=== PATIENT | male | born 1955 | race Caucasian/White ===

== ENCOUNTER 2018-02-14 05:21 | Inpatient (IN) ==
[2018-02-14] MEDS ORDERED: Chlorhexidine Gluconate 2% 1 Pack (2 Cloths) TOPICAL ONE (05:56)
[2018-02-14] MEDS ORDERED: Metoprolol Tartrate 25 MG Tablet PO ONE (05:56)
[2018-02-14] MEDS ORDERED: Sodium Chlor 0.9% Inj 500 ML IV.SIG SCH (06:00)
[2018-02-14] MEDS ORDERED: Heparin/NS PF Inj 500 ML ONE (06:42)
[2018-02-14] MEDS ORDERED: Thrombin Topical 20,000 UNIT Spray Kit TOPICAL ONE (06:42)
[2018-02-14] MEDS ORDERED: Gelatin Size 100 Topical Foam ONE (06:42)
[2018-02-14] MEDS ORDERED: ceFAZolin 1 GM Premix Inj 1 GM/50 ML PIGGYBACK IV.SIG ONE (06:42)
[2018-02-14] MEDS ORDERED: Heparin 10,000 UNITS/10 ML Vial (for IV use) ONE (06:42)
[2018-02-14] MEDS ORDERED: Protamine Sulfate Inj 50 MG/5 ML Vial ONE (06:42)
--- NOTE | 2018-02-14 07:20 | P.HPUP ---
The Pre-Admit History and Physical Examination regarding the above named patient was reviewed (including, but not limited to, vital signs, heart, lungs, co-morbid conditions), and upon re-examination it is noted that: the patient's condition has not significantly changed since the last examination.
[2018-02-14] MEDS ORDERED: Bisacodyl 10 MG Supp RECTAL PRN (09:38)
[2018-02-14] MEDS ORDERED: fentaNYL Citrate Inj 100 MCG/2 ML Ampul ONE (10:24)
[2018-02-14] MEDS ORDERED: Morphine Inj 4 MG/ML Vial ONE (10:24)
[2018-02-14] MEDS ORDERED: hydrALAZINE HCl Inj 20 MG/ML Vial ONE (10:25)
[2018-02-14] MEDS ORDERED: *morphine SULFATE 10 MG/ML PERIprocedure ONLY ONE ×2 (10:31→10:52)
--- NOTE | 2018-02-14 10:36 | P.OP ---
Preoperative Diagnosis: Asymptomatic severe left carotid artery stenosis Postoperative Diagnosis: Asymptomatic severe left carotid artery stenosis Date of procedure: 02/14/18 Procedure: Left carotid artery endarterectomy with pericardial patch angioplasty Anesthesia: GETA Surgeon: Alvaro Villegas MD Estimated blood loss (mL): 50 Operation and Findings: Findings Severe left carotid artery stenosis that was treated by performing a left carotid artery endarterectomy. I used an [place] shunt our total clamp time was less than 1 minute. Description of the procedure The patient was taken to the operating room, laid supine on the OR table. After general trach anesthesia the patient was prepped and draped in the standard sterile fashion. Timeout was called with all members in the OR in agreement. An incision was made anterior to the left sternocleidomastoid. Dissection was taken down through the subcutaneous tissues electrocautery. The carotid sheath was entered. The facial vein identified divided and ligated. The common carotid artery external carotid artery superior thyroid artery and internal carotid artery were dissected and encircled with Silastic loop. The hypoglossal nerve and vagus nerve were identified and protected throughout the whole procedure. The patient was given 5000 units of heparin. Proximal distal control was obtained and an arteriotomy was created in the common carotid artery and extended into the internal carotid artery. An [place] shunt was placed to establish flow from the common carotid artery to the internal carotid artery. Endarterectomy was performed. All fine debris was removed. The distal flap was tacked using multiple 7-0 Prolene suture. The artery was repaired using a pericardial patch that was cut to an appropriate length and secured using 6-0 Prolene suture in the running fashion. The shunt was removed all vessels were flushed and the suture line was completed. I establish flow from the common carotid artery to the external carotid artery then into the internal carotid artery. Hemostasis was achieved. #19 MARY ANN drain was placed into the wound and brought through the skin using a different stab wound. The drain was secured using a nylon suture. The wound was closed in multiple layers using 0 Vicryl suture followed by Monocryl suture. Sterile dressing was applied. The patient was awakened from anesthesia with no neurological deficits and his tongue was midline. He was transferred to the postop care unit in stable condition.
[2018-02-14] MEDS ORDERED: Labetalol HCl Inj 100 MG/20 ML Vial IV.PUSH PRN (10:37)
[2018-02-14] MEDS ORDERED: hydrALAZINE HCl Inj 20 MG/ML Vial IV.PUSH PRN (10:38)
--- NOTE | 2018-02-14 10:43 | P.CONCC ---
History of Present Illness Service: Critical care medicine Consult date: 02/14/18 Requesting Physician: Alvaro Villegas Reason for Consult: ICU management Primary Care Provider: Irais Skelton MD Chief Complaint: Status post left carotid endarterectomy History of Present Illness: This is a 62-year-old male. Date of admission 02/14/2018. Date of consultation 02/15/2008. Past medical includes obstructive sleep apnea, hypertension, malignant Syndrome, psoriasis, colonic polyps. Patient is only on baby aspirin and rosuvastatin 10 mg daily at home. Patient presents to [place] for elective left carotid enterectomy diagnosed as an outpatient. Patient denies any history of TIAs. Today, patient with a uncomplicated left carotid enterectomy by Dr. Villegas. 1900 crystalloid. 100 cc EBL. 450 cc urine output. Patient is currently in nasal cannula postoperatively without complication. Patient has arterial line with systolic blood pressures currently around 150. Receiving as needed labetalol and hydralazine. Denies chest pain. Complaining only of a sore throat. Review of Systems Constitutional: Denies anorexia, Denies body ache(s) Eyes: Denies blind spots, Denies blurry vision Ears, Nose, Mouth, and Throat: Reports sore throat, Denies abnormal hearing, Denies bad breath Cardiovascular: Denies chest pain, Denies shortness of breath Respiratory: Denies cough, Denies shortness of breath, Denies shortness of breath with activity Gastrointestinal: Denies abdominal pain Genitourinary: Denies urinary hesitancy, Denies urinary incontinence Musculoskeletal: Denies abnormal walking, Denies decreased muscle mass Skin/Breast: Denies bleeding lesions, Denies dry skin Neurologic: Denies abnormal hearing, Denies abnormal movements Psychiatric: Denies abnormal sleep pattern, Denies anxiety, Denies confusion, Denies depression Endocrine: Denies cold intolerance, Denies excessive sweating Hematologic/Lymphatic: Denies easy bleeding PMFSH - History History Provided By: Patient - Medical History Medical History: Medical History (Last Updated 02/14/18 @ 10:47 by Pedro Pablo Pedraza MD) Facet arthropathy of spine History of colonic polyps Sleep apnea GERD (gastroesophageal reflux disease) High cholesterol Psoriasis Wears dentures - Surgical History Surgical History: Surgical History (Last Reviewed 02/14/18 @ 10:46 by Pedro Pablo Pedraza MD) History of dental surgery H/O colonoscopy - Family History Family History: Family History (Last Reviewed 02/14/18 @ 10:46 by Pedro Pablo Pedraza MD) Other Family history of diabetes mellitus in father Family history of stroke or transient ischemic attack in father - Social History I have reviewed the patient's Social History: Yes - Tobacco History Second Hand Smoke Exposure: No Tobacco Use In Past 30 Days: Yes Smoking Status: Current every day smoker Tobacco Type: Cigarettes - Alcohol History How Often Do You Have a Drink Containing Alcohol: Never - Substance Use History Substance History: No History of Abuse Medications and Allergies Active Medications: Active Medications Al Hydroxide/Mg Hydroxide (Milk Of Magnesia Liq) 30 ml PO Q12H PRN PRN Reason: Mild Constipation Aspirin (Ecotrin) 81 mg PO DAILY NAIF Bisacodyl (Dulcolax Supp) 10 mg RECTAL DAILY PRN PRN Reason: SEVERE CONSITIPATION Enoxaparin Sodium (Lovenox Inj) 40 mg SQ Q24H NAIF Famotidine (Pepcid) 20 mg PO BID NAIF Hydralazine HCl (Apresoline Inj) 10 mg IV.PUSH Q1H PRN PRN Reason: Sbp>150, Dbp>90 Lactated Ringer's (Lr 1000 Ml Inj) 1,000 mls @ 30 mls/hr IV.SIG .Q24H NAIF Stop: 02/15/18 05:59 Last Admin: 02/14/18 06:30 Dose: 30 mls/hr Sodium Chloride (Ns Inj) 500 mls @ 30 mls/hr IV.SIG .Q10H NAIF Last Admin: 02/14/18 06:40 Dose: Not Given Sodium Chloride (Ns Inj) 1,000 mls @ 100 mls/hr IV.CONT .Q10H NAIF Labetalol HCl (Trandate Inj) 10 mg IV.PUSH Q1H PRN PRN Reason: Sbp>150, Dbp>80, Hr>65 Lactulose (Lactulose Liq) 30 ml PO DAILY PRN PRN Reason: SEVERE CONSITIPATION Non-Formulary Medication (Rosuvastatin [Rosuvastatin]) 10 mg PO DAILY [facility] Oxycodone HCl (Roxicodone) 5 mg PO Q4H PRN PRN Reason: PAIN SCALE 1 TO 5 Senna/Docusate Sodium (Sarina-Colace) 1 tab PO BID [facility] Sennosides (Senokot) 17.2 mg PO Q12H PRN PRN Reason: Moderate Constipation Sodium Chloride (Ns Flush) 2 ml IV.FLUSH PRN PRN PRN Reason: FLUSH AFTER USING IV ACCESS Allergies Allergy/AdvReac Type Severity Reaction Status Date / Time No Known Allergies Allergy Verified 02/10/18 09:08 Home Medications Medication Instructions Recorded Confirmed Type aspirin [Aspir-Low] 81 mg PO DAILY 02/10/18 02/14/18 History ranitidine HCl [Zantac Maximum 150 mg PO DAILY 02/10/18 02/14/18 History Strength] rosuvastatin 10 mg PO DAILY 02/10/18 02/14/18 History Physical Exam Vital signs: Vital Signs 02/14/18 06:29 Temperature 98.7 F Pulse Rate 69 Respiratory Rate 20 Blood Pressure 159/72 H Pulse Oximetry 100 Intake & Output 02/13/18 02/14/18 02/14/18 18:59 06:59 18:59 Intake Total 1900 / 1900 Output Total 550 / 550 Balance 1350 / 1350 Weight 69.9 kg Intake: Anesthesia Amount 1900 / 1900 Output: Estimated Blood Loss 100 / 100 Urine Amount (Catheter) 450 / 450 Indwelling Urethral Catheter 450 / 450 Other: Weight On Admission 69.9 kg - Constitutional no acute distress - Routine HEENT Exam Head: Present: normocephalic, atraumatic Eye: Present: EOMI, PERRL ENT: Present: mucous membranes moist - Routine Neck Exam Present: supple, full ROM. Absent: JVD Comments: Status post left carotid endarterectomy. MARY ANN in place with serosanguineous drainage. - Routine Respiratory Exam Present: CTA bilaterally. Absent: rhonchi, stridor, wheezes - Routine Cardiovascular Exam Present: RRR, S1, S2. Absent: murmur - Routine Abdominal Exam Present: soft, normoactive bowel sounds - Routine Exam Patient deferred: penile exam, testicular exam, scrotal exam, groin exam, perineal exam - Routine Extremities Exam Absent: cyanosis, clubbing, edema - Routine Skin Exam Present: intact - Routine Neurological Exam Present: alert, oriented X3, CN II-XII intact. Absent: sensory deficit, motor deficit - Detailed Neurological Exam: Coma Scale Eye Opening: Spontaneous Verbal Response: Oriented Motor Response: Obey commands [place] Coma Scale Total: 15 - Routine Psychiatric Exam Present: normal affect - Urinary Catheter Management Indwelling Urethral Catheter Cath placed during this visit: yes Reason for continuing: Hourly intake/output Insertion date: 02/14/18 Insertion time: 07:49 Septic Shock Reassessment Septic shock perfusion: reassessment completed Assessment and Plan - Assessment and Plan Plan: Neuro/Psych: History of facet syndrome Patient is written for oxycodone 5 mg 1 tablet every 4 hours as needed pain CV: Postop day 0 left carotid endarterectomy Essential hypertension Hyperlipidemia Continue aspirin 81 mg daily Continue rosuvastatin 10 mg daily for hyperlipidemia As needed labetalol/hydralazine to maintain systolic blood pressure less than 140 Currently on normal saline at 100 cc an hour Resp: History of obstructive sleep apnea Nasal cannula to maintain saturations greater than equal to 92% Incentive spirometry while awake As needed albuterol aerosols every 2 hours as needed GI: History of colonic polyps Clear liquid diet Famotidine for GI prophylaxis Docusate sodium/senna 1 tablet twice daily for bowel regimen : Straight catheterization as needed Endo: Sliding scale insulin if indicated to maintain euglycemia Renal: Creatinine preop was within normal limits Monitor urine output Accurate I's and O follow-up on BMP in a.m. 02/15 Heme: CBC within normal limits preoperatively. Follow-up on CBC in a.m. 12 ID: Monitor for signs and symptomatology infection Msk: History of osteoarthritis History of psoriasis FEN: Replace electrolytes as clinically indicated Access -Utilize peripheral IV. Central line if indicated Prophylaxis -GI -famotidine -DVT -SCD/enoxaparin Level 2 consult
[2018-02-14] MEDS: Sod Chloride 0.9% Inj 1,000 ML IV.CONT SCH ×2 (10:51→20:00)
[2018-02-14] MEDS ORDERED: hydrALAZINE HCl Inj 20 MG/ML Vial IV.PUSH ONE (13:30)
[2018-02-14] MEDS: Famotidine 20 MG Tablet PO SCH (21:14)
[2018-02-14] MEDS: Senna/Docusate Sodium 8.6/50 MG Tablet PO SCH (21:14)
[2018-02-15] MEDS: Sod Chloride 0.9% Inj 1,000 ML IV.CONT SCH (05:48)
[2018-02-15 06:07] LABS: Hematocrit 39.7 % (39.0-51.0); Hemoglobin 13.5 gm/dL (13.0-17.0); Mean Corpuscular HGB Conc 34.1 % (32.0-36.0); Mean Corpuscular Hemoglobin 30.6 pg (27.0-34.0); Mean Corpuscular Volume 89.7 fL (80.0-100.0); Platelet Count 191 th/mm3 (150-450); Red Blood Count 4.43 mil/mm3 (4.50-5.90); Red Cell Distribution Width 13.5 % (11.6-17.2); White Blood Count 13.9 th/mm3 (4.0-11.0)
[2018-02-15 06:44] LABS: Calcium 8.3 mg/dL (8.5-10.1); Carbon Dioxide 24.6 meq/L (21.0-32.0); Potassium 4.3 meq/L (3.5-5.1)
--- NOTE | 2018-02-15 08:02 | P.PNCC ---
Subjective Subjective Remarks/Hospital Course: This is a 62-year-old male. Date of admission 02/14/2018. Date of consultation 02/15/2008. Past medical includes obstructive sleep apnea, hypertension, malignant Syndrome, psoriasis, colonic polyps. Patient is only on baby aspirin and rosuvastatin 10 mg daily at home. Patient presents to [place] for elective left carotid enterectomy diagnosed as an outpatient. Patient denies any history of TIAs. On 02/14, patient with a uncomplicated left carotid enterectomy by Dr. Villegas. 1900 crystalloid. 100 cc EBL. 450 cc urine output. Patient is currently in nasal cannula postoperatively without complication. Patient has arterial line with systolic blood pressures currently around 150. Receiving as needed labetalol and hydralazine. Denies chest pain. Complaining only of a sore throat. 02/15: Awake alert neurologically intact following left carotid endarterectomy yesterday. Blood pressure control is acceptable. Objective Vital Signs / I&O: Vital Signs 02/14/18 10:09 02/14/18 10:15 02/14/18 10:30 Temperature 97.7 F Pulse Rate 73 72 72 Respiratory Rate 11 L 11 L 12 Blood Pressure 163/73 H 159/63 H 158/71 H Pulse Oximetry 100 100 100 02/14/18 10:45 02/14/18 11:00 02/14/18 11:15 Temperature Pulse Rate 73 75 76 Respiratory Rate 7 L 7 L 10 L Blood Pressure 133/64 137/67 144/55 H Pulse Oximetry 100 100 100 02/14/18 11:30 02/14/18 11:45 02/14/18 12:00 Temperature Pulse Rate 80 83 74 Respiratory Rate 11 L 11 L 6 L Blood Pressure 126/63 135/62 129/63 Pulse Oximetry 100 100 100 02/14/18 12:30 02/14/18 13:00 02/14/18 14:00 Temperature Pulse Rate 79 79 Respiratory Rate 10 L 10 L 8 L Blood Pressure 128/52 L 131/50 L Pulse Oximetry 99 99 02/14/18 15:00 02/14/18 15:30 02/14/18 16:00 Temperature Pulse Rate 76 86 Respiratory Rate 11 L 8 L 9 L Blood Pressure 136/52 L 137/52 L Pulse Oximetry 100 100 02/14/18 17:00 02/14/18 18:00 02/14/18 18:02 Temperature Pulse Rate 81 82 Respiratory Rate 13 12 Blood Pressure 140/53 L 130/62 Pulse Oximetry 100 99 100 02/14/18 19:00 02/14/18 19:59 02/14/18 20:00 Temperature 98.4 F 98.9 F Pulse Rate 97 H 102 H Respiratory Rate 11 L 21 Blood Pressure 150/72 H 165/77 H 165/77 H Pulse Oximetry 99 97 02/14/18 21:00 02/14/18 22:00 02/14/18 23:00 Temperature Pulse Rate 99 H 89 88 Respiratory Rate 22 14 9 L Blood Pressure 150/68 H 120/56 L 123/59 L Pulse Oximetry 96 96 95 02/15/18 00:00 02/15/18 01:00 02/15/18 02:00 Temperature 98.8 F Pulse Rate 85 83 81 Respiratory Rate 11 L 13 14 Blood Pressure 137/63 118/56 L 137/67 Pulse Oximetry 96 97 97 02/15/18 03:00 02/15/18 04:00 02/15/18 05:00 Temperature 99 F Pulse Rate 80 79 77 Respiratory Rate 16 16 17 Blood Pressure 133/62 138/65 141/75 H Pulse Oximetry 95 97 97 02/15/18 06:00 Temperature Pulse Rate 72 Respiratory Rate 14 Blood Pressure 149/69 H Pulse Oximetry 99 Intake & Output 02/14/18 02/15/18 02/15/18 18:59 06:59 18:59 Intake Total 1900 / 1900 2880 / 2880 Output Total 950 / 950 2615 / 2615 Balance 950 / 950 265 / 265 Weight 72.2 kg Intake: IV 1999 NS Inj 1,000 ML @ 100 mls/hr IV 1999 .CONT .Q10H [facility] Rx#:[id number] Oral 880 / 880 Anesthesia Amount 1900 / 1900 Output: Estimated Blood Loss 100 / 100 Urine Amount (Catheter) 850 / 850 2600 / 2600 Indwelling Urethral Catheter 850 / 850 2600 / 2600 Wound Drainage Left Neck Result Diagrams: 02/15/18 04:52 02/15/18 04:52 Objective Remarks: - Constitutional no acute distress, calm, conversant. - Routine HEENT Exam Head: Present: normocephalic, atraumatic Eye: Present: EOMI, PERRL ENT: Present: mucous membranes moist - Routine Neck Exam Present: supple, full ROM. Airway widely patent, no obstruction. Comments: Status post left carotid endarterectomy. MARY ANN in place with serosanguineous drainage. - Routine Respiratory Exam Present: Clear bilaterally. Comfortable respiratory pattern. Absent: rhonchi, stridor, wheezes - Routine Cardiovascular Exam Present: RRR, S1, S2. Absent: murmur, JVD - Routine Abdominal Exam Present: soft, normoactive bowel sounds, no guarding - Routine Extremities Exam Digits are warm and well perfused. Absent: cyanosis, clubbing, edema - Routine Skin Exam Present: intact - Routine Neurological Exam Present: alert, oriented X3, moves 4 limbs with grossly normal. Absent: sensory deficit, motor deficit - Detailed Neurological Exam: Coma Scale Eye Opening: Spontaneous Verbal Response: Oriented Motor Response: Obey commands [place] Coma Scale Total: 15 - Routine Psychiatric Exam Present: normal affect, calm Assessment and Plan - Assessment and Plan Plan: Neuro/Psych: History of facet syndrome Oxycodone 5 mg 1 tablet every 4 hours as needed pain CV: Postop day 0 left carotid endarterectomy Essential hypertension Hyperlipidemia Continue aspirin 81 mg daily Continue rosuvastatin 10 mg daily for hyperlipidemia As needed labetalol/hydralazine to maintain systolic blood pressure less than 140 Currently on normal saline at 100 cc an hour, taper off Resp: History of obstructive sleep apnea Nasal cannula to maintain saturations greater than equal to 92% Incentive spirometry while awake As needed albuterol aerosols every 2 hours as needed GI: History of colonic polyps Clear liquid diet Famotidine for GI prophylaxis Docusate sodium/senna 1 tablet twice daily for bowel regimen : Straight catheterization as needed Endo: Sliding scale insulin if indicated to maintain euglycemia Renal: Creatinine preop was within normal limits Monitor urine output Accurate I's and O follow-up on BMP in a.m. 12/12 Heme: CBC within normal limits preoperatively. ID: Monitor for signs and symptomatology infection Msk: History of osteoarthritis History of psoriasis FEN: Replace electrolytes as clinically indicated Access -Utilize peripheral IV. Central line if indicated Prophylaxis -GI -famotidine -DVT -SCD/enoxaparin Overall impression: Neurologic status is intact. Stable hemodynamics and respiratory function following operation for extracranial carotid occlusive disease.
[2018-02-15] MEDS: Senna/Docusate Sodium 8.6/50 MG Tablet PO SCH (08:11)
[2018-02-15] MEDS: Famotidine 20 MG Tablet PO SCH (08:11)
--- NOTE | 2018-02-15 08:35 | P.PNVS ---
Subjective Subjective/Hospital Course: Doing well overnight with no acute issues Objective Vital Signs / I&O: Vital Signs 02/14/18 10:09 02/14/18 10:15 02/14/18 10:30 Temperature 97.7 F Pulse Rate 73 72 72 Respiratory Rate 11 L 11 L 12 Blood Pressure 163/73 H 159/63 H 158/71 H Pulse Oximetry 100 100 100 02/14/18 10:45 02/14/18 11:00 02/14/18 11:15 Temperature Pulse Rate 73 75 76 Respiratory Rate 7 L 7 L 10 L Blood Pressure 133/64 137/67 144/55 H Pulse Oximetry 100 100 100 02/14/18 11:30 02/14/18 11:45 02/14/18 12:00 Temperature Pulse Rate 80 83 74 Respiratory Rate 11 L 11 L 6 L Blood Pressure 126/63 135/62 129/63 Pulse Oximetry 100 100 100 02/14/18 12:30 02/14/18 13:00 02/14/18 14:00 Temperature Pulse Rate 79 79 Respiratory Rate 10 L 10 L 8 L Blood Pressure 128/52 L 131/50 L Pulse Oximetry 99 99 02/14/18 15:00 02/14/18 15:30 02/14/18 16:00 Temperature Pulse Rate 76 86 Respiratory Rate 11 L 8 L 9 L Blood Pressure 136/52 L 137/52 L Pulse Oximetry 100 100 02/14/18 17:00 02/14/18 18:00 02/14/18 18:02 Temperature Pulse Rate 81 82 Respiratory Rate 13 12 Blood Pressure 140/53 L 130/62 Pulse Oximetry 100 99 100 02/14/18 19:00 02/14/18 19:59 02/14/18 20:00 Temperature 98.4 F 98.9 F Pulse Rate 97 H 102 H Respiratory Rate 11 L 21 Blood Pressure 150/72 H 165/77 H 165/77 H Pulse Oximetry 99 97 02/14/18 21:00 02/14/18 22:00 02/14/18 23:00 Temperature Pulse Rate 99 H 89 88 Respiratory Rate 22 14 9 L Blood Pressure 150/68 H 120/56 L 123/59 L Pulse Oximetry 96 96 95 02/15/18 00:00 02/15/18 01:00 02/15/18 02:00 Temperature 98.8 F Pulse Rate 85 83 81 Respiratory Rate 11 L 13 14 Blood Pressure 137/63 118/56 L 137/67 Pulse Oximetry 96 97 97 02/15/18 03:00 02/15/18 04:00 02/15/18 05:00 Temperature 99 F Pulse Rate 80 79 77 Respiratory Rate 16 16 17 Blood Pressure 133/62 138/65 141/75 H Pulse Oximetry 95 97 97 02/15/18 06:00 Temperature Pulse Rate 72 Respiratory Rate 14 Blood Pressure 149/69 H Pulse Oximetry 99 Intake & Output 02/14/18 02/15/18 02/15/18 18:59 06:59 18:59 Intake Total 1900 / 1900 2880 / 2880 Output Total 950 / 950 2615 / 2615 Balance 950 / 950 265 / 265 Weight 72.2 kg Intake: IV 1999 NS Inj 1,000 ML @ 100 mls/hr IV 1999 .CONT .Q10H [facility] Rx#:[id number] Oral 880 / 880 Anesthesia Amount 1900 / 1900 Output: Estimated Blood Loss 100 / 100 Urine Amount (Catheter) 850 / 850 2600 / 2600 Indwelling Urethral Catheter 850 / 850 2600 / 2600 Wound Drainage Left Neck Physical Exam: No neurological deficits Tongue is midline Incision clean dry intact MARY ANN with minimal output Laboratory Results - last 24 hr 02/14/18 02/15/18 02/15/18 20:14 04:52 04:52 WBC 13.9 H RBC 4.43 L Hgb 13.5 Hct 39.7 MCV 89.7 MCH 30.6 MCHC 34.1 RDW 13.5 Plt Count 191 MPV 9.0 Sodium 140 Potassium 4.3 Chloride 109 H Carbon Dioxide 24.6 Anion Gap 6 BUN 9 Creatinine 0.88 Estimated GFR 88 L Random Glucose 89 Calcium 8.3 L Nasal Screen MRSA (PCR) Not detected Assessment and Plan - Plan Status post left carotid artery endarterectomy postop day #1 1. DC MARY ANN drain 2. DC A-line, Mcfarland 3. Activity as tolerated 4. Discharge home today with a follow-up appointment in 4 weeks with a carotid duplex
--- NOTE | 2018-02-15 08:37 | P.DS ---
Discharge Summary - Admission Date 02/14/18 05:21 - Admission Diagnosis (1) Carotid artery stenosis - Discharge Date 02/15/18 - Discharge Diagnosis (1) Carotid artery stenosis Status: Acute - Summary Brief History from admission: 63-year-old male who was admitted for an elective left carotid artery endarterectomy Procedure: Left carotid artery endarterectomy Significant Findings: Abnormal Lab Results 02/14/18 02/15/18 02/15/18 20:14 04:52 04:52 WBC 13.9 H RBC 4.43 L Hgb 13.5 Hct 39.7 MCV 89.7 MCH 30.6 MCHC 34.1 RDW 13.5 Plt Count 191 MPV 9.0 Sodium 140 Potassium 4.3 Chloride 109 H Carbon Dioxide 24.6 Anion Gap 6 BUN 9 Creatinine 0.88 Estimated GFR 88 L Random Glucose 89 Calcium 8.3 L Nasal Screen MRSA (PCR) Not detected Hospital Course: Left carotid artery endarterectomy was performed successfully. The patient was admitted to the ICU for postop care. He had an uneventful night. postop day # 1 he had no neurological deficits, he has no headache neck hematoma. His drain , Mcfar[place], a line were discontinued. He was tolerating regular diet and was ambulating without any difficulties. He was discharged home in stable condition. His condition discharged has improved. - Discharge Instructions Any questions or concerns: Call [facility] at [facility] [phone] Discharge Plan - Discharge Disposition Patient Disposition: 01 Discharge Home - Discharge Order Discharge Orders: Discharge Order (Routine); Ordered 02/15/18 Ordered By: Alvaro Villegas - Physicians Team Primary Care Provider: Irais Skelton Attending Provider: Alvaro Villegas Other Providers: Pedro Pablo Pedraza MD - Rxs /Orders / Referrals /Forms Prescriptions: New hydrocodone-acetaminophen [[place]] 5-325 mg Tablet 1 tab PO Q4H Qty: 40 RF: 0 Continue aspirin [Aspir-Low] 81 mg Tablet,Delayed Release (Dr/Ec) 81 mg PO DAILY ranitidine HCl [Zantac Maximum Strength] 150 mg Tablet 150 mg PO DAILY rosuvastatin 10 mg Tablet 10 mg PO DAILY Referrals: Irais Skelton MD [Primary Care Provider] - See Instructions - Discharge Instructions Patient Printed Instructions: Carotid Endarterectomy (DC)
[2018-02-15] MEDS ORDERED: Enoxaparin Inj 40 MG/0.4 ML Syringe SQ SCH (09:00)
[2018-02-15 09:24] VITALS: O2SAT 100
[2018-02-15 12:20] VITALS: BP 148/67; PULSE 98; RESP 24; TEMP 97
== END 2018-02-15 13:05 | disposition home or self-care (01) ==
LOC: HSDI 05:21 → N03 20:00
PROVIDERS: ADMIT Surgery; ATTEND Surgery